=== PATIENT | female | born 1950 | race Caucasian/White ===

== ENCOUNTER 2022-04-11 10:07 | Day surgery (SDC) | payer BC, OTHER ==
[~2022-04-11] VITALS: Ht 170.2 cm; Wt 78.0 kg
[~2022-04-11 10:07] MED LIST: CEFAZOLIN SOD 2 GM in D5W 50 ML IV ONE
[2022-04-11 11:39] LABS: BILIRUBIN,URINE NEGATIVE (NEGATIVE); BLOOD, URINE NEGATIVE (NEGATIVE); CLARITY/URINE CLOUDY (CLEAR); COLOR,URINE YELLOW (YELLOW); GLUCOSE,URINE NEGATIVE (NEGATIVE); KETONES,URINE NEGATIVE (NEGATIVE); LEUKOCYTE ESTERASE ,URINE NEGATIVE (NEGATIVE); NITRITE, URINE NEGATIVE (NEGATIVE); PH,URINE 5.5 (5.0-8.0); PROTEIN URINE NEGATIVE (NEGATIVE); UROBILINOGEN,URINE 0.2 (0.2-1.0)
[2022-04-11] MEDS ORDERED: FUROSEMIDE 20 MG/2 ML VIAL IVP ONE (12:20)
[2022-04-11] MEDS ORDERED: GENTAMICIN 80 mg/ NS 50 mL IVPB IV ONE (12:20)
[2022-04-11] MEDS ORDERED: METOCLOPRAMIDE HCL 10 MG/2 ML VIAL IVP ONE (12:20)
[2022-04-11] MEDS ORDERED: LR 1,000 ML IV.SOLN IV ONE (12:20)
[2022-04-11] MEDS ORDERED: ePHEDrine sulfate 50 MG/ML VIAL IVP ONE (12:20)
[2022-04-11] MEDS ORDERED: fentaNYL CITRATE/PF 100 MCG/2 ML AMP IVP ONE (12:20)
[2022-04-11] MEDS ORDERED: ONDANSETRON HCL 4 MG/2 ML VIAL IVP ONE (12:20)
[2022-04-11] MEDS ORDERED: CLINDAMYCIN 2% VAGINAL CREAM VG ONE (12:20)
[2022-04-11] MEDS ORDERED: BUPIVACAINE /EPINEPHRINE/PF 0.25% 30 ML VIAL INJ ONE (12:20)
[2022-04-11] MEDS ORDERED: PROPOFOL 200MG/ 20ML VIAL (DIPRIVAN) IV ONE (12:20)
[2022-04-11] MEDS ORDERED: NS 1000 ML IV.SOLN IV ONE (12:20)
[2022-04-11] MEDS ORDERED: DEXTROSE 50% JECT 50 ML DISP.SYRIN IVP ONE (12:20)
[2022-04-11] MEDS ORDERED: NS IRRIG SOLN 1000 ML IR ONE (12:20)
[2022-04-11] MEDS ORDERED: SEVOFLURANE 15 MIN GAS INH ONE (12:20)
[2022-04-11] MEDS ORDERED: MIDAZOLAM HCL 5 MG/5 ML VIAL IVP ONE (12:20)
[2022-04-11] MEDS ORDERED: ROCURONIUM BROMIDE 10 MG/ML (ZEMURON) IV ONE (12:20)
[2022-04-11] MEDS ORDERED: DEXAMETHASONE SOD PHOSPHATE 4 MG/ML VIAL IVP ONE (12:20)
[2022-04-11] MEDS ORDERED: GLYCOPYRROLATE 0.2 MG/ML VIAL IJ ONE (12:20)
[2022-04-11] MEDS ORDERED: VANCOMYCIN HCL 1000 MG/VIAL IV ONE (12:20)
[2022-04-11] MEDS ORDERED: CLINDAMYCIN 900 MG in D5W 100 ML IV ONE (13:30)
[2022-04-11] MEDS ORDERED: CLINDAMYCIN PHOS 900 MG/ D5W 50 ML PREMIX IV ONE (13:45)
[2022-04-11] MEDS ORDERED: ONDANSETRON HCL 4 MG/2 ML VIAL IVP PRN (14:45)
[2022-04-11] MEDS ORDERED: HYDROcodone/ACETAMIN 5-325 MG TAB (NORCO/ VICODIN) PO PRN (14:45)
[2022-04-11] MEDS ORDERED: OXYCODONE/ACETAMINOPHEN 5-325 TABLET PO PRN ×2 (14:45)
[2022-04-11] MEDS ORDERED: HYDR-3919 PO (14:50)
[2022-04-11 18:49] VITALS: BP_SYST 139
== END 2022-04-11 17:46 | disposition home or self-care (01) ==
LOC: SDS 10:07 → SMU 10:09 → SDS 17:46
PROVIDERS: ATTEND Specialist
DX: N81.10 Cystocele, unspecified (principal); N81.6 Rectocele; N36.8 Other specified disorders of urethra; Z88.0 Allergy status to penicillin; Z79.899 Other long term (current) drug therapy; Z20.822 Contact with and (suspected) exposure to COVID-19
CPT/HCPCS: 36415 ×2; 57288; 57260; 81003; 88305; 87426; U0003; J3490 ×3; J1100; J1940; J1580; J2765; J2250; J2405; J2704; J3370; J3010; J7120; J7030; C1771; J0690; J7060